=== PATIENT | female | born 1945 | race Caucasian/White ===

== ENCOUNTER 2019-03-16 10:30 | Outpatient (REF) | payer MEDICARE, OTHER, SELFPAY ==
[2019-03-16 22:09] LABS: Abs Immature Grans 0.02 k/cumm (0.0-0.09); Absolute Basophil Count 0.06 k/cumm (0.0-0.2); Absolute Eosinophil Count 1.21 k/cumm (0.0-0.7); Absolute Lymphocyte Count 2.44 k/cumm (1.2-3.4); Absolute Monocyte Count 0.88 k/cumm (0.11-0.7); Absolute Neutrophil Count 5.45 k/cumm (1.2-6.7); Basophils % 0.6; HCT 35.4 % (36.0-46.0); HGB 10.9 g/dL (12.0-15.5); Immature Grans % 0.2; Lymphocytes % 24.3; Mean Corp. HGB Concentration 30.8 g/dL (32.0-36.0); Mean Corpuscular Hemoglobin 24.7 pg (27.0-33.0); Mean Corpuscular Volume 80.3 fL (80-95); Mean Platelet Volume 11.1 fL (8.0-11.0); Monocytes % 8.7; Neutrophils % 54.2; Platelet Count 362 x1000/uL (130-400); RBC 4.41 m/cumm (4.00-5.20); RBC Distribution Width 16.2 % (11.7-14.6); White Blood Cell Count 10.06 k/cumm (4.4-10.8)
[2019-03-16 22:44] LABS: ALT 30 U/L (12-78); AST 20 U/L (15-37); Albumin 3.5 g/dL (3.4-5.0); Alkaline Phosphatase 147 U/L (46-116); Anion Gap 10.7 mmol/L (3-11); BUN 11 mg/dL (7-18); Bilirubin, Total 0.6 mg/dL (0.2-1.0); CO2 24.3 mmol/L (21.0-32.0); CREATININE 0.94 mg/dL (0.55-1.02); Calcium 9.5 mg/dL (8.5-10.1); Chloride 106 mmol/L (98-107); Glucose 113 mg/dL (70-100); Potassium 4.3 mmol/L (3.5-5.1); Sodium 141 mmol/L (136-145); TSH 2.49 uIU/mL (0.358-3.74); Total Protein 6.4 g/dL (6.4-8.2)
[2019-03-16 23:00] LABS: Diff Comment Diff Reviewed; RBC Morphology Normal
[2019-03-17 17:09] LABS: Iron 41 ug/dL (50-175); Total Iron Binding Capacity 459 ug/dL (250-450); Transferrin Sat 9 % (15-50)
[2019-03-17 17:22] LABS: Ferritin 15 ng/mL (8-388)
[2019-03-18 09:59] LABS: IgA 59 mg/dL (85-499); IgG 561 mg/dL (610-1616); IgM 93 mg/dL (35-242)
[2019-03-22 11:14] LABS: Folate 13.8 ng/ml
== END 2019-03-16 10:50 ==
LOC: NCHCN 10:30
PROVIDERS: PCP Family Medicine; Visit Provider Nurse Practitioner Family
DX: J44.1 Chronic obstructive pulmonary disease with (acute) exacerbation (principal); E03.9 Hypothyroidism, unspecified
CPT/HCPCS: 80053; 82784; 82728; 82746; 83540; 83550; 84443; 85025

== ENCOUNTER 2019-05-11 14:36 | Outpatient (REF) | payer MEDICARE, SELFPAY ==
[2019-05-11 21:49] LABS: HCT 39.5 % (36.0-46.0); HGB 12.3 g/dL (12.0-15.5); Mean Corp. HGB Concentration 31.1 g/dL (32.0-36.0); Mean Corpuscular Hemoglobin 25.7 pg (27.0-33.0); Mean Corpuscular Volume 82.5 fL (80-95); Mean Platelet Volume 10.7 fL (8.0-11.0); Platelet Count 332 x1000/uL (130-400); RBC 4.79 m/cumm (4.00-5.20); RBC Distribution Width 18.8 % (11.7-14.6); White Blood Cell Count 9.81 k/cumm (4.4-10.8)
[2019-05-11 21:53] LABS: Iron 80 ug/dL (50-175)
[2019-05-11 22:18] LABS: ALT 57 U/L (14-59); AST 36 U/L (15-37); Albumin 3.9 g/dL (3.4-5.0); Alkaline Phosphatase 156 U/L (46-116); BUN 18 mg/dL (7-18); Bilirubin, Total 0.5 mg/dL (0.2-1.0); CREATININE 1.03 mg/dL (0.55-1.02); Calcium 9.5 mg/dL (8.5-10.1); Chloride 106 mmol/L (98-107); Estimated GFR 52.67 (mL/min/1.73m2); Ferritin 25 ng/mL (8-388); Folate 12.1 ng/mL (8.6-20.0); Glucose 93 mg/dL (70-100); Potassium 4.6 mmol/L (3.5-5.1); Sodium 142 mmol/L (136-145); TSH (W/Ref FT4) 5.22 uIU/mL (0.36-3.74); Total Protein 7.2 g/dL (6.4-8.2); Vitamin B12 380 pg/mL (193-986)
[2019-05-11 22:47] LABS: FREE T4 0.69 ng/dL (0.76-1.46)
== END 2019-05-11 14:56 ==
LOC: NCHCN 14:36
PROVIDERS: PCP Family Medicine; Visit Provider Nurse Practitioner Family
DX: D64.9 Anemia, unspecified (principal); E03.9 Hypothyroidism, unspecified; R94.5 Abnormal results of liver function studies
CPT/HCPCS: 80053; 85027; 82607; 82728; 82746; 83540; 84439; 84443

== ENCOUNTER 2024-01-29 14:27 | Outpatient (REF) | payer MEDICARE, SELFPAY ==
[2024-01-29 15:01] LABS: Hemoglobin A1C 6.7 % (<5.7)
== END 2024-01-29 14:28 | disposition home or self-care (01) ==
LOC: NCHCN 14:27
PROVIDERS: PCP Family Medicine; Visit Provider Family Medicine
DX: E11.9 Type 2 diabetes mellitus without complications (principal)
CPT/HCPCS: 83036

== ENCOUNTER 2024-04-29 18:56 | Outpatient (REF) | payer MEDICARE, SELFPAY ==
[2024-04-29 21:39] LABS: ALT 27 U/L (14-59); AST 25 U/L (15-37); Alkaline Phosphatase 119 U/L (46-116); Anion Gap 10.5 mmol/L (3-11); BUN 18 mg/dL (7-18); Bilirubin, Total 0.75 mg/dL (0.2-1.0); CO2 25.5 mmol/L (21.0-32.0); Calcium 9.7 mg/dL (8.5-10.1); Chloride 105 mmol/L (98-107); Estimated GFR 58.02 (mL/min/1.73m2); Glucose 96 mg/dL (74-106); Potassium 4.2 mmol/L (3.5-5.1); Sodium 141 mmol/L (136-145); TSH (W/Ref FT4) 3.11 uIU/mL (0.36-3.74); Total Protein 7.4 g/dL (6.4-8.2)
== END 2024-04-29 18:57 | disposition home or self-care (01) ==
LOC: NCHCN 18:56
PROVIDERS: PCP Family Medicine; Visit Provider Family Medicine
DX: E03.9 Hypothyroidism, unspecified (principal)
CPT/HCPCS: 80053; 84443

== ENCOUNTER 2024-09-22 18:23 | Outpatient (REF) | payer MEDICARE, SELFPAY ==
[2024-09-22 21:30] LABS: Iron 73 ug/dL (50-170); Total Iron Binding Capacity 351 ug/dL (250-450); Transferrin Sat 21 % (15-50)
[2024-09-22 21:41] LABS: ALT 46 U/L (14-59); AST 22 U/L (15-37); Albumin 3.6 g/dL (3.4-5.0); Alkaline Phosphatase 364 U/L (46-116); Anion Gap 8.1 mmol/L (3-11); BUN 15 mg/dL (7-18); Bilirubin, Total 0.28 mg/dL (0.2-1.0); CO2 30.9 mmol/L (21.0-32.0); Calcium 9.4 mg/dL (8.5-10.1); Chloride 107 mmol/L (98-107); Estimated GFR 58.02 (mL/min/1.73m2); Ferritin 155 ng/mL (8-252); Glucose 88 mg/dL (74-106); Potassium 4.2 mmol/L (3.5-5.1); Sodium 146 mmol/L (136-145); Total Protein 7.6 g/dL (6.4-8.2)
[2024-09-23 21:16] LABS: Hepatitis A Antibody IgM Negative (Negative); Hepatitis B Core Antibody Negative (Negative); Hepatitis B surface Ag Negative (Negative); Hepatitis C Ab w Rflx HCV PCR Negative (Negative)
== END 2024-09-22 18:24 | disposition home or self-care (01) ==
LOC: NCHCN 18:23
PROVIDERS: PCP Family Medicine; Visit Provider Family Medicine
DX: R74.01 Elevation of levels of liver transaminase levels (principal)
CPT/HCPCS: 80053; 86704; 86709; 86803; 87340; 82728; 83540; 83550

== ENCOUNTER 2024-10-25 16:54 | Outpatient (REF) | payer MEDICARE, SELFPAY ==
[2024-10-25 21:27] LABS: GGT 77 U/L (5-55)
== END 2024-10-25 16:55 | disposition home or self-care (01) ==
LOC: NCHCN 16:54
PROVIDERS: PCP Family Medicine; Visit Provider Family Medicine
DX: K21.9 Gastro-esophageal reflux disease without esophagitis (principal)
CPT/HCPCS: 82977

== ENCOUNTER 2024-12-15 15:14 | Outpatient (REF) | payer MEDICARE, SELFPAY ==
[2024-12-15 16:37] LABS: Calculated LDL 93 mg/dL (<100); Cholesterol 205 mg/dL (<200); HDL Cholesterol 85 mg/dL (>or=50); Triglyceride 139 mg/dL (<150)
[2024-12-15 17:00] LABS: Hemoglobin A1C 5.9 % (<5.7)
== END 2024-12-15 15:15 | disposition home or self-care (01) ==
LOC: NCHCN 15:14
PROVIDERS: PCP Family Medicine; Visit Provider Family Medicine
DX: E11.9 Type 2 diabetes mellitus without complications (principal)
CPT/HCPCS: 80061; 83036

== ENCOUNTER 2025-04-25 16:57 | Outpatient (REF) | payer MEDICARE, SELFPAY ==
[2025-04-25 21:33] LABS: ALT 32 U/L (14-59); AST 29 U/L (15-37); Albumin 4.2 g/dL (3.4-5.0); Alkaline Phosphatase 97 U/L (46-116); Anion Gap 8.3 mmol/L (3-11); BUN 18 mg/dL (7-18); Bilirubin, Total 0.6 mg/dL (0.2-1.0); CO2 28.7 mmol/L (21.0-32.0); Calcium 9.3 mg/dL (8.5-10.1); Chloride 106 mmol/L (98-107); Estimated GFR 57.66 (mL/min/1.73m2); Glucose 95 mg/dL (74-106); Potassium 3.9 mmol/L (3.5-5.1); Sodium 143 mmol/L (136-145); TSH (W/Ref FT4) 3.22 uIU/mL (0.36-3.74); Total Protein 7.3 g/dL (6.4-8.2)
[2025-04-25 22:41] LABS: Hemoglobin A1C 5.9 % (<5.7)
== END 2025-04-25 16:58 | disposition home or self-care (01) ==
LOC: NCHCN 16:57
PROVIDERS: PCP Family Medicine; Visit Provider Family Medicine
DX: E11.9 Type 2 diabetes mellitus without complications (principal); E03.9 Hypothyroidism, unspecified
CPT/HCPCS: 80053; 83036; 84443

== ENCOUNTER 2025-05-30 20:52 | Outpatient (REF) | payer MEDICARE, SELFPAY ==
[2025-05-30 22:13] LABS: COMMENT (LAB VIEW ONLY) 50.26 mg/dL; Microalb ug/mg Crea 9.6 ug/mg Cr
== END 2025-05-30 20:53 | disposition home or self-care (01) ==
LOC: NCHCN 20:52
PROVIDERS: PCP Family Medicine; Visit Provider Family Medicine
DX: I10 Essential (primary) hypertension (principal)
CPT/HCPCS: 82043; 82570